=== PATIENT | male | born 1995 | race Caucasian/White ===

== ENCOUNTER 2018-08-03 11:42 | Emergency (ER) | payer SELFPAY ==
[~2018-08-03] VITALS: Ht 177.8 cm; Wt 65.8 kg
--- NOTE | 2018-08-03 12:02 | NUR ---
STATES TYLENOL AND ADVIL HELP DECREASE PAIN
[2018-08-03] MEDS ORDERED: DONNATAL/LIDOCAINE/MAALOX 30 ML SUSP PO ONE (12:15)
[2018-08-03] MEDS ORDERED: MAGNESIUM/ALUMINUM/SIMETHICONE 30 ML UDC ONE (12:21)
[2018-08-03] MEDS ORDERED: BELLADONNA ALK/PHENOBARBITAL 5 ML UDC ONE (12:21)
[2018-08-03] MEDS ORDERED: LIDOCAINE VISC 2% SOLN 15 ML UDC ONE (12:21)
[2018-08-03] MEDS ORDERED: PRILOSEC OTC20 MG PO (12:24)
--- NOTE | 2018-08-03 12:25 | NUR ---
BILATERAL BP'S PER MD DONE AND REPORTED.
[2018-08-03] MEDS ORDERED: POTASSIUM CHLORIDE 20 MEQ TAB CR PO STA (12:31)
[2018-08-03] MEDS ORDERED: ONDANSETRON HCL INJ 2MG/ML 2ML 2 MG/ML VIAL IV STA (12:31)
--- NOTE | 2018-08-03 12:35 | Diagnostic Imaging Report ---
EXAMINATION: PA and lateral views of the chest. COMPARISON: None CLINICAL HISTORY: Chest discomfort DISCUSSION: Lines/tubes: None. Lungs: The lungs are well inflated and clear. No pneumonia or pulmonary edema. Pleura: No pleural effusion or pneumothorax. Heart and mediastinum: The cardiomediastinal silhouette is normal. Bones and soft tissues: No acute bony abnormalities. IMPRESSION: No acute cardiopulmonary abnormalities. Signed by: Dr. Jose R Espinoza M.D. on 08/03/2018 12:32 PM
--- NOTE | 2018-08-03 12:38 | NUR ---
NAUSEA AFTER GI COCKTAIL, NOTIFIED AND MEDS ORDERED.
--- NOTE | 2018-08-03 12:41 | NUR ---
URINE INTO [facility] CX TUBE AND LABELED AND INTO FRIDGE PER PROTOCOL PER MD ORDER.
[2018-08-03] MEDS ORDERED: SODIUM CHLORIDE 0.9% 1000ML 1,000 ML IV SCH (12:45)
--- NOTE | 2018-08-03 13:38 | NUR ---
PT IVF'S NOW COMPLETED. NAUSEA DECREASED. PT STATES CP STILL PRESENT. MD AWARE. D/C PER ORDERS. RX GIVEN. WORK NOTED. DONE. PT AAOX4. AMBULATORY AT DISCHARGE WITH EVEN STEADY GAIT.
== END 2018-08-03 13:46 | disposition home or self-care (01) ==
LOC: FSED 11:42
DX: R07.89 Other chest pain (principal); F12.90 Cannabis use, unspecified, uncomplicated; F17.210 Nicotine dependence, cigarettes, uncomplicated
CPT/HCPCS: 71046; 80048; 80076; 80307; 81003; 82553; 84484; 85025; 85379; 87086; 93005; 99284; J2405; J7030